=== PATIENT | male | born 1990 | race Hispanic/Latino ===

== ENCOUNTER 2021-12-17 07:57 | Outpatient (CLI) | payer OTHER, SELFPAY ==
--- NOTE | ~2021-12-17 | US_ITS ---
US right upper quadrant INDICATION: Elevated liver enzymes PROCEDURE: Realtime right upper abdominal ultrasound. COMPARISON: No prior studies for comparison. FINDINGS: The pancreas is normal without focal mass or pancreatic ductal dilation. Liver echotexture is normal without focal mass or intrahepatic biliary dilatation. There is normal directional flow i n the portal vein. The gallbladder is normal without stones, gallbladder wall thickening or pericholecystic fluid. Comm on bile duct measures 4 mm. No sonographic Campos's sign. IMPRESSION: 1: Normal limited abdominal ultrasound. Reviewed, dictated and finalized at location A.
== END 2021-12-17 07:58 ==
PROVIDERS: PCP Registered Nurse; Visit Provider Registered Nurse
DX: R74.01 Elevation of levels of liver transaminase levels (principal)
CPT/HCPCS: 76705

== ENCOUNTER 2023-12-04 08:16 | Emergency (ER) | payer OTHER, SELFPAY ==
[2023-12-04] VITALS (21 sets, daily range): BP systolic 134–167; BP diastolic 83–113; PULSE 90–116; RESP 18–29; TEMP 37.2; O2SAT 94–100
--- NOTE | ~2023-12-04 | US_ITS ---
Limited Abdominal Sonogram: Real-time sonographic imaging of the right upper quadrant was performed. Clinical History: Abdominal pain Findings: The liver appears mildly echogenic, with no evidence of mass lesion or bile duct dilatatio n. Main portal vein demonstrates normal direction of flow. The gallbladder is well distended, and stacey ears normal with no evidence of gallstone or wall thickening. The common bile duct measures 4 mm. Th e visualized pancreas, aorta, and IVC are unremarkable. Impression: Diffuse fatty infiltration of the liver. Reviewed, dictated and finalized at location M. Impression: Diffuse fatty infiltration of the liver.
[2023-12-04 08:35] LABS: Basophils Absolute Auto 0.1 K/mm3 (0.0-0.1); Basophils Percent Auto 1.1 % (0.2-1.2); Eosinophils Absolute Auto 0.2 K/mm3 (0-0.3); Eosinophils Percent Auto 2.9 % (0-4.4); Hematocrit 40.8 % (42.0-52.0); Hemoglobin 13.5 g/dL (14.0-18.0); Immature Granulocyte Absolute 0.03 K/mm3 (0.00-0.031); Immature Granulocyte Percent A 0.4 % (0-0.5); Lymphocytes Percent Auto 21.6 % (18.3-44.2); Mean Corpuscular HGB Conc 33.1 g/dl (32-36); Mean Corpuscular Hemoglobin 32.7 pg (26-34); Mean Corpuscular Volume 98.8 fl (80-100); Mean Platelet Volume 10.2 fl (7.4-10.4); Monocytes Absolute Auto 0.7 K/mm3 (0.1-0.6); Monocytes Percent Auto 7.9 % (2.6-8.5); Neutrophils Absolute Auto 5.5 K/mm3 (1.3-6.7); Neutrophils Percent Auto 66.1 % (45.5-73.1); Platelet Count Result 287 k/mm3 (150-375); Red Blood Count 4.13 M/mm3 (4.6-6.20); Red Cell Distribution Width 16.1 % (11.5-14.5); White Blood Count 8.4 K/mm3 (4.5-10.0)
[2023-12-04 08:43] LABS: Alanine Aminotransferase 68 U/L (6-50); Albumin Level 4.5 g/dL (3.5-5.1); Alkaline Phosphatase 289 U/L (38-126); Anion Gap 11 mmol/L (4-12); Aspartate Amino Transferase 271 U/L (17-59); Bilirubin,Total 0.8 mg/dL (0.2-1.3); Blood Urea Nitrogen 13 mg/dL (9-20); Calcium 8.8 mg/dL (8.4-10.2); Carbon Dioxide 29 mmol/L (22-30); Chloride 105 mmol/L (98-107); Estimated CRCL calculation 112 ml/min; Estimated Glomerular Filt Rate > 60; Glucose 97 mg/dL (65-110); Lipase 189 U/L (23-300); Potassium 4.2 mmol/L (3.4-5.0); Sodium 145 mmol/L (137-145)
[2023-12-04 09:19] LABS: Add Urine Microscopic? NO; Appearance Urine Clear (Clear); Bilirubin Urine Negative (Negative); Blood Urine Negative (Negative); Color Urine Yellow (Yellow); Glucose Urine UA Negative (Negative); Ketones Urine Negative (Negative); Leukocyte Esterase Ur Negative LEU/UL (Negative); Nitrate Urine Negative (Negative); Protein Urine Negative (Negative); Specific Grav Ur 1.022 (1.001-1.035); pH Urine 6.5 (5.0-9.0)
--- NOTE | 2023-12-04 10:44 | ED.NAVMDI ---
HPI - Nausea/Vomiting/Diarrhea General Chief complaint: Nausea/Vomiting/Diarrhea Stated complaint: nausea vomitting Time Seen by Provider: 12/04/23 08:32 History of Present Illness HPI Narrative: Patient is a 33-year-old male who presents ER with concerns of vomiting blood. It occurred once couple weeks ago any added again this morning. Reports he vomited about 1/2 cup. He then had an episode of emesis before walking in the ER and had no blood. Patient is a daily drinker consuming about 10 oz of whiskey. He has some mild epigastric discomfort. No diarrhea. He reports a couple weeks ago when he had vomited blood he had had some bright red blood from his rectum. No dark black stools at this time. No diarrhea. No fevers or chills or sweats. he does not believe he has had EGD in the past but has had a colonoscopy. Related Data Home Medications Medication Instructions Recorded Confirmed ergocalciferol (vitamin D2) 1,250 1,250 mcg PO WEEKLY 12/15/21 mcg (50,000 unit) capsule hydrochlorothiazide 25 mg tablet 25 mg PO DAILY 12/15/21 omeprazole 20 mg capsule,delayed 20 mg PO DAILY 12/15/21 release propranolol 80 mg capsule,24 80 mg PO BID 12/15/21 hr,extended release Allergies Allergy/AdvReac Type Severity Reaction Status Date / Time No Known Allergies Allergy Verified 12/04/23 08:24 Review of Systems Review of Systems: All systems reviewed & are unremarkable except as noted in HPI and below Constitutional: Constitutional: Reports no additional constitutional complaints ENT: Reports system reviewed and no additional complaints, except as documented Cardiovascular: Cardiovascular: Reports no additional cardiovascular complaints Respiratory: Respiratory: Reports no additional respiratory complaints Gastrointestinal: Gastrointestinal: Reports abdominal pain, Denies diarrhea, Reports nausea and Reports vomiting PMF Past Medical History Medical History (Updated 12/04/23 @ 12:17 by Edmund Hernandez MD) Hypertension Migraines Family History Family History (Updated 12/15/21 @ 10:01 by Silvia Funes CMA) Father Diabetes mellitus Hypertension Social History Social History (Updated 12/15/21 @ 10:02 by Silvia Funes CMA) Smoking status: Never smoker Tobacco type: e-cigarettes/vaping Alcohol intake: current Drinks per week: 2 Alcohol use details: social Substance use: never Exam Narrative: GENERAL: Well-appearing, well-nourished, and in no acute distress. HEAD: Normocephalic, atraumatic. ENT: Mucous membranes moist. CHEST: Clear to auscultation. No respiratory distress. HEART: Regular rate and rhythm. Normal peripheral pulses. ABDOMEN: Soft, nontender, nondistended. EXTREMITIES: Normal range of motion. No edema. SKIN: Warm, dry, no rash. NEURO: Alert and oriented x3. PSYCH: Normal mood and affect. Course Course Emergency Course: Discussed lab and imaging results. Discussed case with GI. Troy Evans and an outpatient EGD. Patient agreeable plan. Discussed alcohol cessation. Vital Signs Vital signs: Vital Signs Temperature 99.0 F 12/04/23 08:19 Pulse Rate 116 H 12/04/23 08:19 Respiratory Rate 18 12/04/23 08:19 Blood Pressure 167/113 H 12/04/23 08:19 Pulse Oximetry 97 12/04/23 08:19 Oxygen Delivery Room Air 12/04/23 08:19 Temperature 99.0 F 12/04/23 08:19 Pulse Rate 96 12/04/23 10:50 Respiratory Rate 24 H 12/04/23 10:50 Blood Pressure 142/98 H 12/04/23 10:50 Pulse Oximetry 96 12/04/23 10:50 Oxygen Delivery Room Air 12/04/23 08:19 MDM - Nausea/Vomiting/Diarrhea Lab Data 12/04/23 08:27 12/04/23 08:27 Labs: Lab Results 12/04/23 12/04/23 Range/Units 08:27 09:10 WBC 8.4 (4.5-10.0) K/mm3 RBC 4.13 L (4.6-6.20) M/mm3 Hgb 13.5 L (14.0-18.0) g/dL Hct 40.8 L (42.0-52.0) % MCV 98.8 (80-100) fl MCH 32.7 (26-34) pg MCHC 3
== END 2023-12-04 12:25 | disposition home or self-care (01) ==
PROVIDERS: Emergency Provider Emergency Medicine; PCP Registered Nurse
DX: K70.10 Alcoholic hepatitis without ascites (principal); K92.0 Hematemesis; I10 Essential (primary) hypertension
CPT/HCPCS: 36415; 76705; 80053; 81003; 83690; 85025; 99284

== ENCOUNTER 2024-06-11 09:19 | Outpatient (CLI) | payer OTHER, SELFPAY ==
--- NOTE | ~2024-06-11 | MR_ITS ---
EXAMINATION: MR abdomen wo/w con DATE: 06/11/2024 10:13 INDICATION: Abnormal levels of other serum enzymes. TECHNIQUE: Magnetic resonance imaging (MRI) of the abdomen was performed without and with 15 mL Multi Darrin intravenous contrast. COMPARISON: Ultrasound 12/04/2023 FINDINGS: The liver demonstrates surface nodularity, consistent with cirrhosis. The gallbladder is distended, l ikely secondary to fasting. The spleen, pancreas, adrenal glands, and kidneys are normal. There are n o dilated loops of bowel. There are no pathologically enlarged lymph nodes. There is no free intraper itoneal fluid. Paraesophageal varices are noted. IMPRESSION: 1. Cirrhosis of the liver with portal venous hypertension. Reviewed, dictated and finalized at location A. [employer]
== END 2024-06-11 09:20 | disposition home or self-care (01) ==
PROVIDERS: PCP Internal Medicine Gastroenterology; Visit Provider Internal Medicine Gastroenterology
DX: K74.69 Other cirrhosis of liver (principal); K76.6 Portal hypertension
CPT/HCPCS: 74183; A9577